=== PATIENT | male | born 1980 ===

== ENCOUNTER 2017-02-09 08:59 | Emergency (ER) | payer OTHER ==
[2017-02-09 09:05] VITALS: BP 142/89; PULSE 91; RESP 18; TEMP 98.8; O2SAT 99; BMI 27.3
--- NOTE | 2017-02-09 09:25 | C.PDOC ---
History Of Present Illness 36 yr old male presents to the ER with complaints of throat pain for the past 3 days, associated with fever, chills and cough. Patient reports when he coughs the mucus is blood streaked. Patient has multiple other chronic complains that can be dealt with in the clinic. Patient denies chest pain, SOB, nausea, vomiting, headache, weakness or numbness. Time Seen by Provider: 02/09/17 09:11 Chief Complaint (Nursing): ENT Problem History Per: Patient History/Exam Limitations: None Onset/Duration Of Symptoms: Days (3) Past Medical History Reviewed: Historical Data, Nursing Documentation, Vital Signs Vital Signs: Last Vital Signs Temp 98.8 F 02/09/17 09:05 Pulse 91 H 02/09/17 09:05 Resp 18 02/09/17 09:05 BP 142/89 02/09/17 09:05 Pulse Ox 99 02/09/17 09:26 - Medical History PMH: Hypercholesterolemia Family History: States: No Known Family Hx - Social History Hx Alcohol Use: No Hx Substance Use: No - Immunization History Hx Tetanus Toxoid Vaccination: No Hx Influenza Vaccination: No Hx Pneumococcal Vaccination: No Review Of Systems Except As Marked, All Systems Reviewed And Found Negative. Constitutional: Positive for: Fever (Subjective), Chills ENT: Positive for: Throat Pain Cardiovascular: Negative for: Chest Pain Respiratory: Positive for: Cough. Negative for: Shortness of Breath Gastrointestinal: Negative for: Nausea, Vomiting Neurological: Negative for: Weakness, Numbness, Headache Physical Exam - Physical Exam Appears: Non-toxic, No Acute Distress Skin: Warm, Dry, No Rash Head: Atraumatic, Normacephalic Ear(s): Bilateral: Normal Oral Mucosa: Moist Throat: Erythema (Mild erythema to the posterior pharynx), No Exudate, No Drooling Neck: Normal, Normal ROM, Supple Chest: Symmetrical, No Tenderness Cardiovascular: Rhythm Regular, No Murmur Respiratory: Normal Breath Sounds, No Rales, No Rhonchi, No Stridor, No Wheezing Extremity: Normal ROM, No Swelling Neurological/Psych: Oriented x3, Normal Speech, Normal Motor ED Course And Treatment O2 Sat by Pulse Oximetry: 99 (RA) Pulse Ox Interpretation: Normal Medical Decision Making Medical Decision Making: PLAN: * Motrin PO * Tylenol PO Disposition Counseled Patient/Family Regarding: Diagnosis, Need For Followup, Rx Given - Disposition Referrals: [facility] [Outside] Disposition: HOME/ ROUTINE Disposition Time: 09:21 Condition: STABLE Prescriptions: Penicillin VK [Penicillin VK Tab] 500 mg PO TID #30 tab Instructions: Pharyngitis (ED) Forms: [facility] (Luxembourger), General Discharge Instructions - POA Present On Arrival: None - Clinical Impression Clinical Impression: Pharyngitis - Scribe Statement The provider has reviewed the documentation as recorded by the Lolly Tello Provider Attestation: All medical record entries made by the Lolly were at my direction and personally dictated by me. I have reviewed the chart and agree that the record accurately reflects my personal performance of the history, physical exam, medical decision making, and the department course for this patient. I have also personally directed, reviewed, and agree with the discharge instructions and disposition.
== END 2017-02-09 09:34 | disposition home or self-care (01) ==
LOC: C.ER 08:59
DX: J02.9 Acute pharyngitis, unspecified (principal)

== ENCOUNTER 2017-03-28 10:55 | Emergency (ER) | payer OTHER ==
[2017-03-28 10:55] VITALS: BMI 27.3
[2017-03-28 11:00] VITALS: O2SAT 98
--- NOTE | 2017-03-28 11:42 | C.PDOC ---
History Of Present Illness 36 y/o male c/o dizziness for the past 2 years. Patient has been seen here numerous times for the same complaint. Patient also reports a recent history of sore throat and has been evaluated before the complaint. Patient has been seen to have had work ups done at [facility] for both of the complaints. Denies chest pain, SOB, abdominal pain, nausea, or vomiting. No fever, chills, or cough. Time Seen by Provider: 03/28/17 11:14 Chief Complaint (Nursing): Dizziness/Lightheaded History Per: Patient History/Exam Limitations: no limitations Onset/Duration Of Symptoms: Days Current Symptoms Are (Timing): Still Present Severity: Mild Recent travel outside of the [place]: No Additional History Per: Patient Past Medical History Reviewed: Historical Data, Nursing Documentation, Vital Signs Vital Signs: Last Vital Signs Temp 97.8 F 03/28/17 13:05 Pulse 80 03/28/17 13:05 Resp 16 03/28/17 13:05 BP 155/92 H 03/28/17 13:05 Pulse Ox 98 03/28/17 17:18 - Medical History PMH: Hypercholesterolemia (PT DENIES) Family History: States: Unknown Family Hx - Social History Hx Alcohol Use: No Hx Substance Use: No - Immunization History Hx Tetanus Toxoid Vaccination: No Hx Influenza Vaccination: No Hx Pneumococcal Vaccination: No Review Of Systems Except As Marked, All Systems Reviewed And Found Negative. Constitutional: Negative for: Fever, Chills ENT: Positive for: Throat Pain Cardiovascular: Negative for: Chest Pain Respiratory: Negative for: Shortness of Breath Gastrointestinal: Negative for: Nausea, Vomiting, Abdominal Pain Neurological: Positive for: Dizziness Physical Exam - Physical Exam Appears: Non-toxic, No Acute Distress Skin: Warm, Dry Head: Atraumatic, Normacephalic Eye(s): bilateral: Normal Inspection Chest: Symmetrical Cardiovascular: Rhythm Regular, No Murmur Respiratory: Normal Breath Sounds, No Rales, No Rhonchi, No Wheezing Gastrointestinal/Abdominal: Soft, No Tenderness Neurological/Psych: Oriented x3 Gait: Steady ED Course And Treatment O2 Sat by Pulse Oximetry: 98 (RA) Pulse Ox Interpretation: Normal - Radiology CXR: Interpreted by Me CXR Interpretation: Yes: No Acute Disease Progress Note: strep test ordered. Strep (-). On re-evaluation neuro intact, ambulating with steady gait. Advised to follow up with clinic for further evaluation Reassessment Condition: Unchanged Medical Decision Making Medical Decision Making: Plans: * Serology * CXR Disposition Counseled Patient/Family Regarding: Studies Performed, Diagnosis, Need For Followup, Rx Given - Disposition Referrals: [facility] [Outside] [facility] [Outside] Disposition: HOME/ ROUTINE Disposition Time: 12:50 Condition: STABLE Additional Instructions: Follow up with the clinic for further evaluation Instructions: Pharyngitis (ED) Forms: [employer] (Romanian) Print Language: GUYANESE - POA Present On Arrival: None - Clinical Impression Clinical Impression: Pharyngitis, Dizziness, Dizziness - Scribe Statement The provider has reviewed the documentation as recorded by the Smitaibedin romo All medical record entries made by the Smitaibedin were at my direction and personally dictated by me. I have reviewed the chart and agree that the record accurately reflects my personal performance of the history, physical exam, medical decision making, and the department course for this patient. I have also personally directed, reviewed, and agree with the discharge instructions and disposition.
--- NOTE | 2017-03-28 11:46 | RAD ---
HISTORY: Cough COMPARISON: None available. TECHNIQUE: Chest PA and lateral FINDINGS: LUNGS: No focal consolidation. Please note that chest x-ray has limited sensitivity for the detection of pulmonary masses. PLEURA: No significant pleural effusion identified. No definite pneumothorax . CARDIOVASCULAR: Heart size appears within normal limits. OSSEOUS STRUCTURES: No acute osseous abnormality identified. VISUALIZED UPPER ABDOMEN: Unremarkable. OTHER FINDINGS: None. IMPRESSION: No focal consolidation, significant pleural effusion, or definite pneumothorax identified.
[2017-03-28 13:06] VITALS: BP 155/92; PULSE 80; RESP 16; TEMP 97.8
== END 2017-03-28 13:06 | disposition home or self-care (01) ==
LOC: C.ER 10:55
DX: J02.9 Acute pharyngitis, unspecified (principal); R42 Dizziness and giddiness